=== PATIENT | female | born 1970 | race Caucasian/White ===

== ENCOUNTER 2024-04-29 14:55 | Observation (INO) ==
[2024-04-29] MEDS ORDERED: NS 250 ML IV 25 ML IV PRN (15:21)
[2024-04-29] MEDS: CYTOTEC PO SCH (15:53)
[2024-04-29] MEDS: ZOSYN VIAL 3.375 GRAMS 3.375 G in NS 100 ML IV 100 ML IV SCH (16:08)
[2024-04-29] MEDS: LR 1,000 ML IV 1,000 ML IV SCH (16:08)
[2024-04-29 16:22] LABS: BASOPHILS % (AUTO) 0.3 % (0.2-1.0); EOSINOPHILS % (AUTO) 0.1 % (0.9-2.9); HEMATOCRIT 37.4 % (36.0-47.0); HEMOGLOBIN 12.9 g/dL (12.0-16.0); LYMPHOCYTES # (AUTO) 1.7 X10^3/uL (1.3-2.9); LYMPHOCYTES % (AUTO) 19.1 % (21.0-51.0); MEAN CORPUSCULAR HEMOGLOBIN 28.7 pg (27.0-34.0); MEAN CORPUSCULAR HGB CONC 34.5 g/dL (33.0-35.0); MEAN CORPUSCULAR VOLUME 83.2 fL (80.0-100.0); MEAN PLATELET VOLUME 8.3 fL (7.4-11.0); MONOCYTES # (AUTO) 0.5 x10^3/uL (0.3-0.8); MONOCYTES % (AUTO) 6.1 % (0.0-13.0); NEUTROPHILS # (AUTO) 6.5 x10^3/uL (2.2-4.8); NEUTROPHILS % (AUTO) 74.4 % (42.0-75.0); PLATELET COUNT 278 X10^3/uL (150.0-450.0); WHITE BLOOD COUNT 8.8 X10^3/uL (3.6-10.0)
[2024-04-29 16:33] LABS: ALANINE AMINOTRANSFERASE 20 Units/L (12-78); ALKALINE PHOSPHATASE 96 Units/L (46-116); ASPARTATE AMINO TRANSFERASE 11 Units/L (15-37); BLOOD UREA NITROGEN 32 mg/dL (7-18); CARBON DIOXIDE 27.6 mmol/L (21-32); CHLORIDE 95 mmol/L (98-107); COR NA(FOR HYPERGLY) 137 mmol/L (136-145); CREATININE 0.76 mg/dL (0.55-1.02); GLUCOSE 271 mg/dL (65-99); POTASSIUM 3.1 mmol/L (3.5-5.1); SODIUM 133 mmol/L (136-145); TOTAL PROTEIN 7.9 g/dL (6.4-8.2); eGFR NON BLACK RACES > 60 (>60)
[2024-04-29 16:40] VITALS: BMI 33.5
[2024-04-29] MEDS: NovoLIN R (or HumuLIN R) SUBCUT PRN (17:28)
[2024-04-29 20:01] LABS: BILIRUBIN,URINE NEGATIVE (NEGATIVE); BLOOD/HEMOGLOBIN,URINE NEGATIVE (NEGATIVE); GLUCOSE, URINE 3+ (NEGATIVE); KETONES,URINE 3+ (NEGATIVE); LEUKOCYTE ESTERASE ,URINE 1+ (NEGATIVE); NITRITES,URINE NEGATIVE (NEGATIVE); PROTEIN,URINE 2+ (NEGATIVE); UROBILINOGEN,URINE NORMAL (NORMAL)
[2024-04-29 20:08] LABS: APPEARANCE,URINE CLOUDY (CLEAR); COLOR,URINE YELLOW (YELLOW)
[2024-04-29 20:09] LABS: BACTERIA,URINE TRACE /HPF (NEGATIVE); GRANULAR CASTS,URINE NUMEROUS /LPF (NEGATIVE); SQUAMOUS EPITHELIAL CELL,UR MANY /HPF (NEGATIVE)
[2024-04-29] MEDS: SNACK - Diabetic Appropriate PO SCH (20:26)
[2024-04-29] MEDS: PROTONIX INJ 40 MG VIAL IVP SCH (21:10)
[2024-04-29] MEDS: COLACE CAP 100 MG PO SCH (21:10)
[2024-04-29] MEDS: GLUCOPHAGE XR 24-HR PO SCH (21:11)
[2024-04-30] MEDS: ZOFRAN INJ 4 MG VIAL IVP PRN (04:14)
[2024-04-30 05:50] LABS: BASOPHILS % (AUTO) 0.3 % (0.2-1.0); HEMATOCRIT 37.3 % (36.0-47.0); HEMOGLOBIN 12.8 g/dL (12.0-16.0); LYMPHOCYTES # (AUTO) 1.1 X10^3/uL (1.3-2.9); LYMPHOCYTES % (AUTO) 14.7 % (21.0-51.0); MEAN CORPUSCULAR HEMOGLOBIN 28.7 pg (27.0-34.0); MEAN CORPUSCULAR HGB CONC 34.3 g/dL (33.0-35.0); MEAN CORPUSCULAR VOLUME 83.5 fL (80.0-100.0); MEAN PLATELET VOLUME 7.9 fL (7.4-11.0); MONOCYTES # (AUTO) 0.2 x10^3/uL (0.3-0.8); MONOCYTES % (AUTO) 2.9 % (0.0-13.0); NEUTROPHILS # (AUTO) 5.9 x10^3/uL (2.2-4.8); NEUTROPHILS % (AUTO) 82.1 % (42.0-75.0); PLATELET COUNT 246 X10^3/uL (150.0-450.0); RED BLOOD COUNT 4.46 X10^6/uL (3.5-5.4); WHITE BLOOD COUNT 7.2 X10^3/uL (3.6-10.0)
[2024-04-30 06:05] LABS: ALANINE AMINOTRANSFERASE 20 Units/L (12-78); ALBUMIN 3.8 g/dL (3.4-5.0); ALKALINE PHOSPHATASE 90 Units/L (46-116); ASPARTATE AMINO TRANSFERASE 12 Units/L (15-37); BLOOD UREA NITROGEN 26 mg/dL (7-18); CALCIUM 9.7 mg/dL (8.5-10.1); CARBON DIOXIDE 29.5 mmol/L (21-32); CHLORIDE 96 mmol/L (98-107); COR NA(FOR HYPERGLY) 138 mmol/L (136-145); CREATININE 0.77 mg/dL (0.55-1.02); GLUCOSE 285 mg/dL (65-99); MAGNESIUM 1.6 mg/dL (2.0-2.9); POTASSIUM 3.7 mmol/L (3.5-5.1); SODIUM 134 mmol/L (136-145); TOTAL PROTEIN 7.4 g/dL (6.4-8.2); eGFR NON BLACK RACES > 60 (>60)
[2024-04-30] MEDS ORDERED: CONSULT PHARMACY - POTASSIUM & MAGNESIUM XX SCH (09:00)
[2024-04-30] MEDS ORDERED: MAG-OX TAB PO SCH (09:00)
[2024-04-30] MEDS: MAGNESIUM SULFATE 1 GRAM/100 mL PREMIX 1 G/100 ML BAG IV SCH (10:00)
[2024-04-30] MEDS: ACTOS PO SCH (11:08)
[2024-04-30] MEDS: COLACE CAP 100 MG PO SCH (11:33)
[2024-04-30] MEDS: NS 1,000 ML IV 1,000 ML ONE (14:33)
[2024-04-30] MEDS: NS 1,000 ML IV 150 ML IV PRN (14:35)
[2024-04-30] MEDS: DIPRIVAN VIAL 140 ML IVP PRN (14:41)
[2024-04-30] MEDS: CARAFATE PO SCH (21:05)
[2024-05-01 05:47] LABS: BASOPHILS % (AUTO) 0.2 % (0.2-1.0); EOSINOPHILS % (AUTO) 0.1 % (0.9-2.9); HEMOGLOBIN 12.1 g/dL (12.0-16.0); LYMPHOCYTES # (AUTO) 2.1 X10^3/uL (1.3-2.9); LYMPHOCYTES % (AUTO) 27.9 % (21.0-51.0); MEAN CORPUSCULAR HEMOGLOBIN 28.9 pg (27.0-34.0); MEAN CORPUSCULAR HGB CONC 34.6 g/dL (33.0-35.0); MEAN CORPUSCULAR VOLUME 83.6 fL (80.0-100.0); MEAN PLATELET VOLUME 7.9 fL (7.4-11.0); MONOCYTES # (AUTO) 0.5 x10^3/uL (0.3-0.8); MONOCYTES % (AUTO) 6.1 % (0.0-13.0); NEUTROPHILS # (AUTO) 4.9 x10^3/uL (2.2-4.8); NEUTROPHILS % (AUTO) 65.7 % (42.0-75.0); PLATELET COUNT 244 X10^3/uL (150.0-450.0); RED BLOOD COUNT 4.19 X10^6/uL (3.5-5.4); WHITE BLOOD COUNT 7.4 X10^3/uL (3.6-10.0)
[2024-05-01 06:22] LABS: ALANINE AMINOTRANSFERASE 19 Units/L (12-78); ALBUMIN 3.3 g/dL (3.4-5.0); ALKALINE PHOSPHATASE 78 Units/L (46-116); ASPARTATE AMINO TRANSFERASE 14 Units/L (15-37); BLOOD UREA NITROGEN 19 mg/dL (7-18); CALCIUM 9.2 mg/dL (8.5-10.1); CARBON DIOXIDE 29.8 mmol/L (21-32); CHLORIDE 100 mmol/L (98-107); COR CA(FOR HYPOALB) 9.8 mg/dL (8.5-10.1); COR NA(FOR HYPERGLY) 139 mmol/L (136-145); GLUCOSE 167 mg/dL (65-99); POTASSIUM 3.3 mmol/L (3.5-5.1); SODIUM 137 mmol/L (136-145); TOTAL PROTEIN 6.6 g/dL (6.4-8.2); eGFR NON BLACK RACES > 60 (>60)
[2024-05-01] MEDS ORDERED: CONSULT PHARMACY - POTASSIUM & MAGNESIUM XX SCH (07:00)
[2024-05-01] MEDS ORDERED: K-DUR TAB 20 MEQ PO SCH (08:00)
--- NOTE | 2024-05-01 13:27 | CT ---
EXAM: ABDCMEN/PELVIS WITH CON HISTORY: hematemesis, abdominal pain with rebound tendernes; COMPARISON: CT abdomen and pelvis 04/02/2024 TECHNIQUE: Multiple CT axial images of the abdomen and pelvis were obtained with IV contrast. Coronal and sagitt al images were reconstructed. Dose reduction techniques included Automated Exposure Control (AEC) and adjustment of mA and kV. FINDINGS: The lung bases are clear. Heart size is normal. The liver is normal in size and configuration. The gallbladder has no edema around it. The spleen i s normal in size and shape. The pancreas is normal. Normal right adrenal gland. 2 left adrenal nodules are present measuring 2.4 cm and 1.9 cm. These a re not changed in size or appearance since the CTA chest 04/09/2022. These are likely adenomas. Renal enhancement is uniform and symmetric with no solid mass. There is no hydronephrosis or signific ant perirenal edema. The bladder has normal distention. It has no wall thickening or perivesical ej ma. Enlarged uterus with probable calcified fibroid is unchanged. Normal right and left ovary. No pelvi c free fluid or inflammation. The bowel is not dilated. There is no wall thickening in the bowel or edema around the bowel. A norm al appendix is not identified. But there is no inflammation around the cecum or at the expected locat ion of the appendix. Oral contrast has moved through the entire bowel into the rectumwithout evidenc e for obstruction. Degenerative spondylitic changes are present in the spine. Very small umbilical hernia contains fat. No evidence for inguinal hernia. IMPRESSION: 1. No acute finding 2. Uterine fibroid 3. Stable left adrenal nodules, likely adenomas THIS IS AN ELECTRONICALLY VERIFIED FINAL REPORT 05/01/2024 1:23 PM - Electronically signed by Jose Black MD
[2024-05-01] MEDS: K-DUR TAB 20 MEQ PO SCH (15:00)
[2024-05-01] MEDS: LINZESS PO SCH (15:06)
[2024-05-01] MEDS: K-DUR TAB 20 MEQ PO ONE (18:26)
[2024-05-01] MEDS: DIPRIVAN VIAL 20 ML ONE (21:36)
[2024-05-01] MEDS: OMNIPAQUE 350 mg/mL 100 mL BTL 100 ML ONE (21:37)
[2024-05-01] MEDS: NS 250 ML IV 250 ML IV ONE (21:37)
[2024-05-01] MEDS: READI-CAT 2 ONE (21:37)
[2024-05-02 07:34] VITALS: BP 169/79; PULSE 79; RESP 20; TEMP 98.2; O2SAT 95
== END 2024-05-02 10:48 | disposition home or self-care (01) ==
LOC: MED/SURG
PROVIDERS: ADMIT Obstetrics & Gynecology Obstetrics; ATTEND Obstetrics & Gynecology Obstetrics
DX: I10 Essential (primary) hypertension; K25.3 Acute gastric ulcer without hemorrhage or perforation; F41.8 Other specified anxiety disorders; E11.65 Type 2 diabetes mellitus with hyperglycemia; F32.89 Other specified depressive episodes; E87.1 Hypo-osmolality and hyponatremia; D25.9 Leiomyoma of uterus, unspecified; K92.0 Hematemesis; R10.84 Generalized abdominal pain; E83.42 Hypomagnesemia